=== PATIENT | male | born 1965 | race Caucasian/White ===

== ENCOUNTER 2017-01-21 19:44 | Emergency (ER) | payer SELFPAY ==
[~2017-01-21] VITALS: Ht 177.8 cm; Wt 72.7 kg
[~2017-01-21 19:44] MED LIST: ADV250INHA INH; ALBUTHFA INH; AMLO5TAB90 PO; ASPI81TA40 PO; CYCL10TA9 PO; GABA100C PO; NITR0.4T SL; NOR10 PO; TIOT18CA INH
[2017-01-21 19:51] VITALS: BP 131/84; PULSE 74; RESP 20; O2SAT 90
[2017-01-21 20:48] LABS: BASOPHILS % (AUTO) 0.7 % (0-3)
[2017-01-21 20:52] LABS: EOSINOPHILS % (AUTO) 12.5 % (0-5); Mean Corpuscular Hemoglobin 35.8 pg (27.0-35.0); Mean Corpuscular Volume 101.5 fL (81-100); NEUTROPHILS % (AUTO) 61.8 % (40-74); Platelet Count 480 bil/L (150-400)
--- NOTE | 2017-01-21 21:06 | DRSVH ---
PROCEDURE: X-RAY CHEST, TWO VIEWS ([id number]) INDICATIONS: SOB TECHNIQUE: 2 views of the chest were acquired. COMPARISON: [facility], CR, XR CHEST 2VW, 09/22/2015, 11:27. FINDINGS: Surgical changes and devices: None. Lungs and pleura: No pleural effusions or pneumothorax. There is hyperinflation of the lungs with f lattening of the hemidiaphragms compatible with COPD. Lungs are clear. Mediastinum: Mediastinal contours are normal. Heart size is normal. Bones and chest wall: No suspicious bony abnormalities. Soft tissues appear unremarkable. IMPRESSION: 1. Findings compatible with COPD without acute consolidation. Dictated by: Armani Fragoso M.D. on 01/21/2017 at 21:00 Approved by: Armani Fragoso M.D. on 01/21/2017 at 21:04
[2017-01-21 21:08] LABS: TROPONIN T < 0.010 ug/L (0.0-0.011)
--- NOTE | 2017-01-21 21:15 | ED.REPORT ---
HPI-General Illness Date of Service Jan 21, 2017 ED Provider: Dr. Weber 51 y/o male with a hx of COPD, HTN and cervical stenosis presents to the ED complaining of worsening shortness of breath, onset few weeks ago. His sx exacerbate when laying down. Associated sx include chest pain with inspiration and severe cough with clear sputum. He states coughing leaves him lightheaded. He denies fever. He has not been able to afford his Advair due to insurance issues. The pt is a current smoker. Nursing Notes Stated Complaint: SOB, CANT SLEEP Chief Complaint: Respiratory Distress Nursing Notes Reviewed: Yes Allergies: Coded Allergies: No Known Drug Allergies (Verified Allergy, Unknown, 02/10/15) Scheduled Albuterol-Expunged Drug, Do Not Renew! (Albuterol-Expunged Drug, Do Not Renew!) 90 Mcg/Puff Hfa.aer.ad 2 PUFF INH PRN For Wheezing or Shortness of Breath AmLODIPine-Expunged Drug, Do Not Renew! (AmLODIPine-Expunged Drug, Do Not Renew! ) 5 Mg Tablet 10 MG PO DAILY Aspirin-Expunged Drug, Do Not Renew! (Aspirin-Expunged Drug, Do Not Renew!) 81 Mg Tab.chew 81 MG PO DAILY Azithromycin (Zithromax) 250 Mg Tablet 250 MG PO DAILY Beclomethasone Dipropionate (Qvar) 8.7 Gm Aer.w.adap 2 PUFF INHALATION BID Flutic/Salmet-Expunged Drug, Do Not Renew! (Advair 250/50-Expunged Drug, Do Not Renew!) 250 Mcg/50 Mcg Disk 1 PUFF INH BID For Asthma/COPD Management. Gabapentin-Expunged Drug, Do Not Renew! (Neurontin-Expunged Drug, Do Not Renew! ) 100 Mg Capsule 100 MG PO HS Prednisone (PredniSONE) 20 Mg Tablet 60 MG PO DAILY Salmeterol Xinafoate (Serevent Diskus) 50 Mcg/Puff Inhaler 1,400 MCG IH BID Tiotropium Br-Expunged Drug, Do Not Renew! (Spiriva-Expunged Drug, Do Not Renew! ) 18 Mcg/Puff Pack [address] capsule into center of chamber; close mouthpiece; press and release the piercing button only once. Exhale completely then Inhale and holdbreath aslong as is comfortable; repeat once more before discarding thecapsule. Scheduled PRN APAP/HYDROCODONE-Expunged Drug, Do Not Renew! (NORCO-Expunged Drug, Do Not Renew !) 1 Tab Tablet 1 TAB PO Q4 PRN PRN For Pain Benzonatate (Tessalon Perle) 100 Mg Capsule 100 MG PO TID PRN PRN For Cough Cyclobenzaprine-Expunged Drug, Do Not Renew! (Cyclobenzaprine-Expunged Drug, Do Not Renew!) 10 Mg Tablet 10 MG PO TID PRN PRN For Spasm For muscle spasms Nitroglycerin-Expunged Drug, Do Not Renew! (Nitroglycerin SL-Expunged Drug, Do Not Renew!) 0.4 Mg Tab.subl 0.4 MG SL PRN PRN PRN For Chest Pain General Time Seen by MD: 21:14 Chief Complaint Breathing problem Hx Obtained From: Patient Arrived By: Walk-in Sudden in Onset?: No Onset Occurred: More than a week ago... Symptom Duration: Since onset Severity: Current: No pain currently Severity: Maximum: No pain Recent Healthcare: No recent doctor visit Past Medical History Past Medical History Pt stated h/o OR, but records indicate while admitted for CP w/concern and abnormal stress, enzymes and cardiac cath were negative. Cervical stenosis chronic headaches (3 prior ED visits, CT neg) Reports: COPD, Hypertension Past Surgical History Negative Cardiac Catheritization for CAD 06/2013 Smoking History Current Every Day Smoker Social History Alcohol Use: 1-3 per day Drug Use: Denies drug use Other Social History: Smokeless tobacco, Local resident Ambulatory Status Independent Review of Systems Full Review of Systems Constitutional: Denies: Fever Respiratory: Reports: Prod cough, clear, Shortness of breath Cardiovascular: Reports: Chest pain (with inspiration) Complete sys rev & neg: except as marked. Physical Exam Vital Signs Vital Signs Date Time Temp Pulse Resp B/P Pulse Ox O2 Delivery O2 Flow Rate FiO2 01/21/17 23:38 36.6 68 15 124/70 95 Room Air 01/21/17 22:05 78 16 95 Aerosol Mask 8 01/21/17 21:43 96 10 136/71 99 Simple Mask 8 01/21/17 21:41 76 16 95 Nasal Cannula 2 01/21/17 19:51 36.6 74 20 131/84 90 Room Air Initial VS: Reviewed Head / Eyes: Atraumatic, Normocephalic Neck: Supple, Non-tender, Full range of motion Cardiovascular: Regular rate & rhythm, Heart sounds normal, Intact distal pulses Abdomen / GI: Soft, Non-tender Extremities: Vascular intact, Neuro intact, No swelling, No tenderness Skin: Warm, Dry, No cyanosis Neurologic: Alert, Oriented, Nonfocal General/Constitutional: Awake, Alert, Cooperative Distress / Hydration: Positive: Dehydration mild, Distress mild Pt is thin. Neck: Atraumatic, Supple, Full range of motion, No JVD Respiratory / Chest: Atraumatic, Breath sounds = bilat, No rhonchi Wheezing / Retractions: Positive: Wheezing mild The pt is breathing at the top of his respiratory cycle. He is not empyting his lungs. Typical COPD appearance. Interpretation & Diagnostics Lab Results Interpretation Result Diagram: 01/21/17203701/21/172037 Test 01/21/17 20:38 01/21/17 20:39 White Blood Count 13.6th/mm3 (3.8-10.1) Red Blood Count 4.02mil/mm3 (4.40-5.80) Hemoglobin 14.4g/dL (13.8-17.2) Hematocrit 40.8% (41.0-50.0) Mean Corpuscular Volume 101.5fL (81-100) Mean Corpuscular Hemoglobin 35.8pg (27.0-35.0) Mean Corpuscular Hemoglobin Concent 35.3% (32.0-37.0) Red Cell Distribution Width 13.2% (12.3-15.4) Platelet Count 480bil/L (150-400) Neutrophils (%) (Auto) 61.8% (40-74) Lymphocytes (%) (Auto) 15.7% (14-46) Monocytes (%) (Auto) 9.0% (4-12) Eosinophils (%) (Auto) 12.5% (0-5) Basophils (%) (Auto) 0.7% (0-3) Sodium Level 136mEq/L (134-144) Potassium Level 3.8mEq/L (3.5-5.2) Chloride Level 98mEq/L (97-108) Carbon Dioxide Level 20mmol/L (18-29) Blood Urea Nitrogen 6mg/dL (6-24) Creatinine 0.74mg/dL (0.76-1.27) Estimat Glomerular Filtration Rate 119mL/min (>59) Glucose Level 118mg/dL (60-99) Calcium Level 9.5mg/dL (8.5-10.1) Magnesium Level 2.0mg/dL (1.6-2.6) Total Bilirubin 0.6mg/dL (0.0-1.2) Aspartate Amino Transf (AST/SGOT) 27U/L (0-50) Alanine Aminotransferase (ALT/SGPT) 21U/L (0-44) Alkaline Phosphatase 82U/L (25-150) Troponin T < 0.010ug/L (0.0-0.011) Pro-B-Type Natriuretic Peptide 106.0pg/mL (0-121) Total Protein 7.6g/dL (6.4-8.4) Albumin 4.5g/dL (3.4-5.0) Hold Boone Top Tube Received (Received) ECG Interpretation ECG Interpretation: Normal sinus rhythm. Rate 63. Time: 20:07 Interpreted by: ED physician X-Ray Chest Interpretation Chest Xray Interpretation: IMPRESSION: 1. Findings compatible with COPD without acute consolidation. Dictated by: Armani Fragoso M.D. on 01/21/2017 at 21:00 Approved by: Armani Fragoso M.D. on 01/21/2017 at 21:04 View: Portable, AP & lat Interpretation / Wet Read by: Interpret - Radiologist Re-Eval/Medical Decision Med Decision/Clinical Course 51-year-old COPD continues to smoke. He presents with a slow advancing exacerbation after running out of his Advair and his insurance declined to renew it. He is improved here after to have, IV steroids, and is discharged now with a brief azithromycin course, prednisone course for weak, salmeterol and Qvar to substitute for Advair. Smoking cessation discussed at length. Source of Hx: Old records Time of Eval: 22:09 Re-Evaluation/Progress Note: Respiratory therapist states his air movement is better after the Albuterol administration. He feels "weird" and lightheaded after the Nebulizer. Time of Eval: 22:36 Re-Evaluation/Progress Note: Rechecked pt. Discussed lab results, imaging results, diagnosis and plan to discharge. Pt understands and agrees with the plan. F/U instruction and RTER warning given. All questions addressed. Counseled Regarding: Diagnosis, Lab results, Need for follow-up, When/why to return to ED Discharge & Departure Primary Impression: COPD with exacerbation Additional Impression: Nicotine addiction Disposition: Home Discharge Condition All VS Reviewed: Yes Patient Instructions: COPD (Chronic Obstructive Pulmonary Disease) (ED), How to Stop Smoking (ED) Additional Instructions: It is critical that you stop smoking. You do not have much reserve left to continue to suffer damage. Begin as erythromycin one tab daily for four more days. Begin prednisone three tabs daily for one week. On the last day of prednisone, begin Qvar inhaler two puffs twice daily. After a week, back off to one puff twice daily. Begin Serevent inhaler one puff twice daily. (Substitutes for Advair Diskus) Tessalon Perles three times daily if needed for cough. Follow-up with your doctor in the office. Return if any immediate issues. Referrals: Michel Valentino MD (PCP) Scribe Attestation Portions of this note were transcribed by Ngozi Huertas. I,, personally performed the history, physical exam and medical decision-making;I reviewed and confirmed the accuracy of the information in the transcribed note. Signed by Cleve Salas. 01/21/17 copies to: Michel Valentino MD, Christopher W MD Jan 21, 2017 21:15 Ngozi Huertas Jan 21, 2017 21:24
[2017-01-21] MEDS ORDERED: Dexamethasone 10 mg/mL Inj IVPUSH ONE (21:30)
[2017-01-21] MEDS ORDERED: Albuterol 2.5 mg/3 mL Inhalation Solution NEB ONE (21:30)
[2017-01-21] MEDS ORDERED: Albuterol-Ipratropium 3 mL Inhalation Solution NEB ONE (21:30)
[2017-01-21 21:41] VITALS: PULSE 76; RESP 16; O2SAT 95
[2017-01-21 21:43] VITALS: BP 136/71; PULSE 96; RESP 10; O2SAT 99
[2017-01-21 22:05] VITALS: PULSE 78; RESP 16; O2SAT 95
[2017-01-21] MEDS ORDERED: SALM50DI IH (22:42)
[2017-01-21] MEDS ORDERED: BECL8.7A6 INHALATION (22:43)
[2017-01-21] MEDS ORDERED: PRE20 PO (22:44)
[2017-01-21] MEDS ORDERED: BENZ-12 PO (22:51)
[2017-01-21] MEDS ORDERED: ZIT250 PO (23:35)
[2017-01-21 23:38] VITALS: BP 124/70; PULSE 68; RESP 15; O2SAT 95
== END 2017-01-21 23:40 | disposition home or self-care (01) ==
LOC: SED 19:44
DX: J44.1 Chronic obstructive pulmonary disease with (acute) exacerbation (principal); F17.200 Nicotine dependence, unspecified, uncomplicated; I10 Essential (primary) hypertension; I25.2 Old myocardial infarction; Z79.82 Long term (current) use of aspirin
CPT/HCPCS: 36415; 71020; 80053; 83735; 83880; 84484; 85025; 93005; 94644; 96374; 99285; J1100; J7613; J7620

== ENCOUNTER 2017-03-05 22:51 | Inpatient (IN) | payer OTHER ==
[~2017-03-05] VITALS: Ht 180.3 cm; Wt 64.3 kg
[2017-03-05 22:51] VITALS: BP 156/83; PULSE 68; RESP 12; O2SAT 99
[~2017-03-05 22:51] MED LIST changes: +BECL8.7A6 INHALATION; +BENZ-12 PO; +PRE20 PO; +SALM50DI IH; +ZIT250 PO
--- NOTE | 2017-03-05 22:53 | ED.REPORT ---
HPI-General Illness Date of Service Mar 05, 2017 ED Provider: Dusty Weber MD Pt is a 51 year old male with a history of hypertension and COPD who presents to the ED via EMS with increasing SOB onset prior to arrival. He arrived with CPAP in place, and was given nebulizer treatment and 125 mg of Solumedrol by EMS. Per EMS, pt was bent over in tripod position, and failing when they arrived. Pt reports that he has been sick for a few days, but cannot afford his medications. He also states that he still smokes cigarettes every other day. Nursing Notes Stated Complaint: SHORT OF BREATH Chief Complaint: Respiratory Distress Nursing Notes Reviewed: Yes Allergies: Coded Allergies: No Known Drug Allergies (Verified Allergy, Unknown, 02/10/15) Scheduled ([Advair]) Unknown Dose INHALATION BID Amlodipine (Amlodipine) 10 Mg Tablet 10 MG PO DAILY Aspirin (Aspirin) 81 Mg Tablet 81 MG PO DAILY Atenolol (Atenolol) 25 Mg Tablet 25 MG PO BID Lisinopril (Lisinopril) 10 Mg Tablet 10 MG PO DAILY Omeprazole (Omeprazole) 20 Mg Capsule.dr 20 MG PO DAILY Ranitidine (Ranitidine) 300 Mg Capsule 300 MG PO BID Umeclidinium Orange (Incruse Ellipta) 62.5 Mcg/Actuation Blst.w.dev Unknown Dose INHALATION DAILY Scheduled PRN ([Albuterol ]) INHALATION PRN For Wheezing Cyclobenzaprine (Cyclobenzaprine) 10 Mg Tablet 10 MG PO TID PRN PRN Spasm Hydrocodone-Acetaminophen 10-325 mg (Hydrocodone-Acetaminophen 10-325 mg) 1 Each Tablet 1 TABLET PO Q6H PRN PRN For Pain General Time Seen by MD: 22:53 Chief Complaint Other (SOB) Hx Obtained From: Patient, EMS Arrived By: Ambulance Context of Onset: Ran out of medication Pertinent Negative: Pt denies other symptoms Recent Healthcare: No recent doctor visit, No recent hospitalization Past Medical History Past Medical History Pt stated h/o [place], but records indicate while admitted for CP w/concern and abnormal stress, enzymes and cardiac cath were negative. Cervical stenosis chronic headaches (3 prior ED visits, CT neg) Reports: COPD, Hypertension Past Surgical History Negative Cardiac Catheritization for CAD 06/2013 Smoking History Current Every Day Smoker Social History Alcohol Use: 1-3 per day Drug Use: Denies drug use Other Social History: Smokeless tobacco, Local resident Ambulatory Status Independent Review of Systems Full Review of Systems Constitutional: Denies: Chills, Fever Respiratory: Reports: Shortness of breath (increasing ) GI: Denies: Abdominal pain, Diarrhea, Nausea, Vomiting Musculoskeletal: Denies: Back pain Skin: Denies Rash Psychiatric: Denies: Change mental status Complete sys rev & neg: except as marked. Physical Exam Vital Signs Vital Signs Date Time Temp Pulse Resp B/P Pulse Ox O2 Delivery O2 Flow Rate FiO2 03/06/17 01:34 65 17 132/80 96 Nasal Cannula 2 03/06/17 01:29 65 17 132/80 96 Nasal Cannula 2 03/06/17 00:03 71 12 125/81 97 Nasal Cannula 2 03/05/17 23:27 69 17 132/92 100 BiPAP 6 03/05/17 23:09 71 16 98 BiPAP 30 03/05/17 23:09 17 98 30 03/05/17 22:57 70 16 149/102 100 BiPAP 7 03/05/17 22:51 36.3 68 12 156/83 99 BiPAP 8 Initial VS: Reviewed Head / Eyes: Atraumatic, Normocephalic Neck: Supple, Full range of motion Abdomen / GI: Soft, Non-tender Extremities: Vascular intact, Neuro intact, No swelling, No tenderness Skin: Warm, Dry, No cyanosis Neurologic: Alert, Oriented, Nonfocal Psychiatric: Mood/affect normal, Behavior normal, Normal thought content General/Constitutional: Awake, Alert Respiratory / Chest: Atraumatic Wheezing, worse in left than right Respiratory distress, now improving Cardiovascular: Heart rate NL Heart Rate / Rhythm: Positive: Tachycardia No peripheral edema Interpretation & Diagnostics Lab Results Interpretation Result Diagram: 03/06/17 0605 03/05/17 2301 Test 03/05/17 23:01 03/05/17 23:34 03/06/17 01:01 Sodium Level 140mEq/L (134-144) Potassium Level 3.8mEq/L (3.5-5.2) Chloride Level 102mEq/L (97-108) Carbon Dioxide Level 20mmol/L (18-29) Blood Urea Nitrogen 4mg/dL (6-24) Creatinine 0.60mg/dL (0.76-1.27) Estimat Glomerular Filtration Rate 152mL/min (>59) Glucose Level 105mg/dL (60-99) Calcium Level 9.3mg/dL (8.5-10.1) Total Bilirubin 0.5mg/dL (0.0-1.2) Aspartate Amino Transf (AST/SGOT) 20U/L (0-50) Alanine Aminotransferase (ALT/SGPT) 20U/L (0-44) Alkaline Phosphatase 76U/L (25-150) Troponin T < 0.010ug/L (0.0-0.011) Pro-B-Type Natriuretic Peptide 169.7pg/mL (0-121) Total Protein 7.4g/dL (6.4-8.4) Albumin 4.6g/dL (3.4-5.0) Hold Boone Top Tube Received (Received) Urine Color Straw (YELLOW) Urine Appearance Clear (CLEAR,HAZY) Urine pH 7.5 (5.0-8.0) Urine Specific [place] 1.004 (1.003-1.035) Urine Protein Negativemg/dL (NEG,TRACE) Urine Glucose (UA) Negativemg/dL (NEGATIVE) Urine Ketones Negativemg/dL (NEGATIVE) Urine Occult Blood Negative (NEGATIVE) Urine Nitrite Negative (NEGATIVE) Urine Bilirubin Negative (NEGATIVE) Urine Urobilinogen Normalmg/dL (NORMAL) Urine Leukocyte Esterase Negative (NEGATIVE) Urine RBC 0-2/hpf (0-2) Urine WBC 0-5/hpf (0-5) Urine Epithelial Cells None/hpf (NONE-MOD) Urine Crystals None seen (NONE SEEN) Urine Bacteria None/hpf (NONE-FEW) Urine Hyaline Casts None/lpf (NONE) Urine Granular Casts None seen (NONE SEEN) Urine Waxy Casts None seen (NONE SEEN) Urine Red Blood Cell Casts None seen (NONE SEEN) Urine White Blood Cell Casts None seen (NONE SEEN) Urine Mucus None seen (None Seen) Urine Trichomonas None seen (NONE SEEN) Urine Yeast None (NONE SEEN) Urinalysis Comment None Urine Culture Reflexed Not indicated Procalcitonin 0.02ng/mL (0.00-0.08) ECG Interpretation ECG Interpretation: Sinus rhythm, rate 70 Time: 23:15 Interpreted by: ED physician X-Ray Chest Interpretation Chest Xray Interpretation: No pneumonia appreciated. View: Portable, 1 view Interpretation / Wet Read by: Wet read ED physician Re-Eval/Medical Decision Med Decision/Clinical Course 51-year-old brought by rescue after worsening exacerbation of COPD resulted in distress approaching respiratory failure. He is much improved but certainly not normal at this point. He is initially resistant, but agrees to overnight observation and continued nebulizers. Part of his issue is economic noncompliance, as he has been prescribed Advair Diskus and Afforded. He is needs could be served by steroid inhaler and routine beta agonists. He is admitted now to the medicine service for additional steroids and nebulizers. A smoke-free milia will also be helpful. Transported in stable and improved condition. Source of Hx: Old records Time of Eval: 00:04 Re-Evaluation/Progress Note: Pt rechecked. Discussed plan for admission. Time of Eval: 00:43 Re-Evaluation/Progress Note: Per nurse, pt doesn't want to be admitted. Upon re-evaluation, pt agrees to be admitted. Pt understands and agrees with plan. All questions addressed. Consultation : Referral / Consult Name: Rony Holliday MD Consulted With: Hospitalist Call Returned at: 00:28 Early Childhood Education Coordinator: Will see patient, Agrees with plan, Accepts admit Note: Discussed plan for admission with hospitalist, Dr. Holliday. Counseled Regarding: Diagnosis, Lab results, Need for admission Discharge & Departure Shift Change Sign-Out Response to Therapy: Improved Primary Impression: COPD with exacerbation Additional Impression: Respiratory distress Disposition: ADMITTED TO HOSPITAL Discharge Condition All VS Reviewed: Yes Condition: Stable Referrals: Michel Valentino MD (PCP) Crit Care Except Billable Proc Time Spent: 30-74 minutes (30 minutes ) Scribe Attestation Portions of this note were transcribed by Marybeth Brooke. I, Dr. Weber, personally performed the history, physical exam and medical decision-making; I reviewed and confirmed the accuracy of the information in the transcribed note. copies to: Michel Valentino MD, Christopher W MD Mar 05, 2017 22:53 Marybeth Brooke Mar 06, 2017 00:42 0.02ng/mL (0.00-0.08) ECG Interpretation ECG Interpretation: Sinus rhythm, rate 70 Time: 23:15 Interpreted by: ED physician X-Ray Chest Interpretation Chest Xray Interpretation: No pneumonia appreciated. View: Portable, 1 view Interpretation / Wet Read by: Wet read ED physician Re-Eval/Medical Decision Source of Hx: Old records Time of Eval: 00:04 Re-Evaluation/Progress Note: Pt rechecked. Discussed plan for admission. Time of Eval: 00:43 Re-Evaluation/Progress Note: Per nurse, pt doesn't want to be admitted. Upon re-evaluation, pt agrees to be admitted. Pt understands and agrees with plan. All questions addressed. Consultation : Referral / Consult Name: Rony Holliday MD Consulted With: Hospitalist Call Returned at: 00:28 Early Childhood Education Coordinator: Will see patient, Agrees with plan, Accepts admit Note: Discussed plan for admission with hospitalist, Dr. Holliday. Counseled Regarding: Diagnosis, Lab results, Need for admission Discharge & Departure Disposition: ADMITTED TO HOSPITAL Discharge Condition All VS Reviewed: Yes Condition: Stable Referrals: Michel Valentino MD (PCP) Crit Care Except Billable Proc Time Spent: 30-74 minutes (30 minutes ) Scribe Attestation Portions of this note were transcribed by Marybeth Brooke. I, Dr. Weber, personally performed the history, physical exam and medical decision-making; I reviewed and confirmed the accuracy of the information in the transcribed note. copies to: Michel Valentino MD, Christopher W MD Mar 05, 2017 22:53 Marybeth Brooke Mar 06, 2017 00:42
[2017-03-05 22:57] VITALS: BP 149/102; PULSE 70; RESP 16; O2SAT 100
--- NOTE | 2017-03-05 22:59 | ABG ---
DateTimeAnalyzed 22:52:00 -_ pH ____7.402 - 7.350 7.450 pCO2 ___39.1__ -mmHg 35.0 45.0 pO2 102 -mmHg 69.0 116 HCO3- ___23.8__ -mmol/L 22.0 26.0 ABE ___-0.3__ -mmol/L -2.0 2.0 tHb ___14.2__ -g/dL 12.0 18.0 O2Hb ___95.2__ -% COHb ____2.4__ -% 0.0 1.5 MetHb ____1.0__ -% 0.4 1.5 sO2 ___98.5__ -% 25.0 FIO2 ___50.0__ -% Drawn By AF - Date/Time Notified____ 22:58:00 -_ Oxygen Device 1 ____BIPAP - Notified By AF - Notified Whom ___Dr. Weber - B 756 -mmHg tO2 ___19.1__ -Vol% OrderingPhysicianInitials CR - Jas test _Positive -
[2017-03-05] MEDS ORDERED: Albuterol 2.5 mg/3 mL Inhalation Solution NEB ONE (23:04)
[2017-03-05 23:06] LABS: BASOPHILS % (AUTO) 0.9 % (0-3); EOSINOPHILS % (AUTO) 11.2 % (0-5); MONOCYTES % (AUTO) 8.6 % (4-12); Mean Corpuscular Hemoglobin 35.8 pg (27.0-35.0); Mean Corpuscular Volume 100.2 fL (81-100); NEUTROPHILS % (AUTO) 57.4 % (40-74); Platelet Count 440 bil/L (150-400)
[2017-03-05 23:09] VITALS: PULSE 71; RESP 16; RESP 17; O2SAT 98
[2017-03-05 23:27] VITALS: BP 132/92; PULSE 69; RESP 17; O2SAT 100
[2017-03-05 23:43] LABS: APPEARANCE,URINE CLEAR (CLEAR,HAZY); COLOR,URINE STRAW (YELLOW); OCCULT BLOOD,URINE NEGATIVE (NEGATIVE); PH,URINE 7.5 (5.0-8.0); UROBILINOGEN,URINE NORMAL (NORMAL)
[2017-03-05 23:47] LABS: TROPONIN T < 0.010 ug/L (0.0-0.011)
[2017-03-06] VITALS (15 sets, daily range): BP systolic 102–135; BP diastolic 66–81; PULSE 20–79; RESP 12–20; O2SAT 92–97
[2017-03-06] MEDS ORDERED: Alum-Mag Hydrox-Simeth 30 mL Suspension PO PRN (01:00)
[2017-03-06] MEDS ORDERED: Polyethylene Glycol (PEG) 17 Gm Powder PO PRN (01:00)
[2017-03-06] MEDS ORDERED: Ondansetron 2 mg/mL 2 mL Inj IVPUSH PRN (01:00)
[2017-03-06] MEDS ORDERED: MethylprednisoLONE Sodium Succinate 62.5 mg/mL 2 mL Inj IVPUSH ONE (01:00)
--- NOTE | 2017-03-06 01:11 | PCM.HPMED ---
Subjective Date of Service Mar 06, 2017 Primary Provider: Admitting Physician: Primary Care Physician: Michel Valentino MD Attending Physician: Admit Status: From the Emergency Department, Full Admit, Remote Telemetry Chief Complaint: Shortness of breathe History of Present Illness: David Richmond is a 51 yo man with COPD, Hypertension, Tobacco abuse who presents to [facility] emergency department with complaints of increasing shortness of breathe Patient has been having breathing problems fo several weeks but worsened yesterday. He has increasing shortness of breathe with associated productive whitish cough. He denies any fever or chills. No sick contacts. He has ran out of his inhalers specifically Advair and Incrus due to cost for a month now. He continues to smoke on a daily basis History of COPD exacerbation in the past. Not currently on any oxygen at home. 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 Denies any occupational exposure Case discussed with Dr Weber, inhaler and steroids initiated with plans to admit Review of Systems: Pertinent positives as noted in HPI. All other systems were reviewed and are negative Allergies Coded Allergies: No Known Drug Allergies (Verified Allergy, Unknown, 02/10/15) Home Medications From [facility], not yet confirmed David Richmond. [id number] 1965 12/04/2016 11:15 AM 06/26 ADVAIR DISKUS 250/50 INHALANT INHALE 1 PUFF TWICE DAILY IN THE MORNING AND IN THE EVENING Aspirin Low Dose 81 mg tablet,delayed release take 1 tablet by oral route every day for heart cyclobenzaprine 10 mg tablet TAKE 1 TABLET (10MG) BY ORAL ROUTE 3 TIMES EVERY DAY NEEDED FOR MUSCLE SPASM fluticasone 50 mcg/actuation nasal spray,suspension spray 2 spray by intranasal route every day in each nostril for allergies INCRUSE ELLIPTA 62.5MCG INH INHALANT INHALE 1 PUFF BY INHALATION ROUTE EVERY DAY AT THE SAME TIME EACH DAY FOR BREATHING [place] 10 mg-325 mg tablet take 1 tablet by ORAL route every 4 hours as needed for pain NORVASC 10MG TABLETS TABLET TAKE 1 TABLET BY ORAL ROUTE EVERY DAY OMEPRAZOLE 20MG CAPS CAPSULE TAKE 1 CAPSULE BY ORAL ROUTE EVERY DAY RANITIDINE 300MG TABLET TABLET TAKE 1 TABLET BY ORAL ROUTE EVERY DAY TWICE DAILY VENTOLIN HFA INHALER MG INHALANT INHALE 2 PUFF BY INHALATION ROUTE EVERY 4 - 6 HOURS NEEDED ZESTRIL 10MG TABLETS TABLET TAKE 1 TABLET BY ORAL ROUTE EVERY DAY Atenolol 25 mg bid Lisinopril 10 mg daily PMH COPD Allergic rhinitis Anxiety with panic attacks Tobacco abuse Hypertension Chronic back pain due to Lumbar radiculopathy . Surgical History Cardiac cath Family History Father 68 history of CVA Mother 68, no health issues Social History Hx Alcohol Use: Yes Hx Substance Use: No Hx Tobacco Use: Yes (1/2 ppd) Smoking Status: Current Every Day Smoker Living Arrangement: with Family Exam Vital Signs Vital Sign - Last Date Time Temp Pulse Resp B/P Pulse Ox O2 Delivery O2 Flow Rate FiO2 03/06/17 00:03 71 12 125/81 97 Nasal Cannula 2 03/05/17 23:09 30 03/05/17 22:51 36.3 Exam General: Alert, Oriented X3, Cooperative, Talking in full sentences with intermittent coughing Eyes: PERRLA, Scleral Anicteric Mouth: Mouth Normal, Mucous Membranes Moist/[place] Neck: Supple, no Thyromegaly, trachea central. Chest & Lungs: Clear to auscultation & percussion, No adventitious breath sounds, no crackles, + expiratory wheeze Cardiovascular: Normal S1, Normal S2, No Murmurs/Rubs/Gallops, Regular Rate/ Rhythm, (No JVD, no peripheral edema) Pulses: Radial (present and equal), Dorsalis Pedi (present and equal) Abdomen: Soft, Non-tender, Non-distended, Normoactive bowel tones. Musculoskeletal: Unremarkable. Normal range of motion, no swollen or erythematous joints Extremities: No edema, no cyanosis, no clubbing. Skin: No rashes. Warm and dry, no erythematous areas Neurological: Grossly neurologically intact, Normal Speech, Sensation Intact Lymphatic: Lymph nodes Cervical and Axillary not palpable. Lab and Diagnostics Labs Laboratory Tests Test 03/05/17 23:01 03/05/17 23:34 03/06/17 01:01 White Blood Count 12.2th/mm3 (3.8-10.1) Red Blood Count 4.05mil/mm3 (4.40-5.80) Hemoglobin 14.5g/dL (13.8-17.2) Hematocrit 40.6% (41.0-50.0) Mean Corpuscular Volume 100.2fL (81-100) Mean Corpuscular Hemoglobin 35.8pg (27.0-35.0) Mean Corpuscular Hemoglobin Concent 35.7% (32.0-37.0) Red Cell Distribution Width 13.3% (12.3-15.4) Platelet Count 440bil/L (150-400) Neutrophils (%) (Auto) 57.4% (40-74) Lymphocytes (%) (Auto) 21.7% (14-46) Monocytes (%) (Auto) 8.6% (4-12) Eosinophils (%) (Auto) 11.2% (0-5) Basophils (%) (Auto) 0.9% (0-3) Sodium Level 140mEq/L (134-144) Potassium Level 3.8mEq/L (3.5-5.2) Chloride Level 102mEq/L (97-108) Carbon Dioxide Level 20mmol/L (18-29) Blood Urea Nitrogen 4mg/dL (6-24) Creatinine 0.60mg/dL (0.76-1.27) Estimat Glomerular Filtration Rate 152mL/min (>59) Glucose Level 105mg/dL (60-99) Calcium Level 9.3mg/dL (8.5-10.1) Total Bilirubin 0.5mg/dL (0.0-1.2) Aspartate Amino Transf (AST/SGOT) 20U/L (0-50) Alanine Aminotransferase (ALT/SGPT) 20U/L (0-44) Alkaline Phosphatase 76U/L (25-150) Troponin T < 0.010ug/L (0.0-0.011) Pro-B-Type Natriuretic Peptide 169.7pg/mL (0-121) Total Protein 7.4g/dL (6.4-8.4) Albumin 4.6g/dL (3.4-5.0) Hold [place] Top Tube Received (Received) Urine Color Straw (YELLOW) Urine Appearance Clear (CLEAR,HAZY) Urine pH 7.5 (5.0-8.0) Urine Specific [place] 1.004 (1.003-1.035) Urine Protein Negativemg/dL (NEG,TRACE) Urine Glucose (UA) Negativemg/dL (NEGATIVE) Urine Ketones Negativemg/dL (NEGATIVE) Urine Occult Blood Negative (NEGATIVE) Urine Nitrite Negative (NEGATIVE) Urine Bilirubin Negative (NEGATIVE) Urine Urobilinogen Normalmg/dL (NORMAL) Urine Leukocyte Esterase Negative (NEGATIVE) Urine RBC 0-2/hpf (0-2) Urine WBC 0-5/hpf (0-5) Urine Epithelial Cells None/hpf (NONE-MOD) Urine Crystals None seen (NONE SEEN) Urine Bacteria None/hpf (NONE-FEW) Urine Hyaline Casts None/lpf (NONE) Urine Granular Casts None seen (NONE SEEN) Urine Waxy Casts None seen (NONE SEEN) Urine Red Blood Cell Casts None seen (NONE SEEN) Urine White Blood Cell Casts None seen (NONE SEEN) Urine Mucus None seen (None Seen) Urine Trichomonas None seen (NONE SEEN) Urine Yeast None (NONE SEEN) Urinalysis Comment None Urine Culture Reflexed Not indicated Result Diagram: 03/05/17 2301 03/05/17 2301 Additional Diagnostics: Pulmonary function test 11/09/11 Spirometry test was done showed FEV1 of 2.02, which is 48%. Vital capacity of 2.65, which is 70%. FEV1 to FVC of 55%. After bronchodilators, 7% improvement in FEV1 up to 2.19, which is 52%. Chest x-ray reviewed showed hyperinflated lungs consistent with diagnosis of COPD. Also, he had a previous CT scan of the sinus that showed sinusitis mostly in the right maxillary sinus. Assessment & Plan David Richmond is a 51 yo man with COPD, Hypertension, Tobacco abuse who presents to [facility] emergency department with complaints of increasing shortness of breathe 1. Acute COPD exacerbation. Present on admission Trigger is likely due to ongoing smoking as well as exposure to atmospheric smoke dusts. Also the patient has ran out of his [employer] and [employer] due to cost. Differential diagnosis includes Pulmonary embolism (less likely), Congestive heart failure or pneumonia - steroid therapy continued with Prednisone 40 mg x 5 days - Chest x ray showed no infiltrates, will hold off on antibiotics while checking procalcitonin - DuoNeb scheduled for now - recommended Influenza vaccination this year - recommend a follow up with Pulmonology as outpatient and repeat a Pulmonary function test - Social work consult to help with patients prescriptions (mentioned above) 2 Hypertension, Chronic Recent addition of 2 hypertensive medications, indicated poor control - resume all antihypertensive medications - Heart healthy diet 3 Nicotine Dependence Counseled patient on importance of cessation. Discussed complications such as CAD, Stroke and Lung malignancy - nicotine patch offered upon request - Acetaminophen as needed for mild pain/fever/headache - Bowel regimen as needed - Antiemetic as needed Patient admitted under inpatient status with expected length of stay > 2 midnights for severity of present symptoms, complexities of treatment plan and risk for adverse event . Resuscitation Status: CPR: Attempt Resuscitation Rony Holliday MD Mar 06, 2017 01:11
[2017-03-06] MEDS ORDERED: HYDR-3740 PO (02:48)
[2017-03-06] MEDS ORDERED: ASPI-973 PO (02:48)
[2017-03-06] MEDS ORDERED: Advair INHALATION ×2 (02:48→15:42)
[2017-03-06] MEDS ORDERED: CYCL10TA9 PO (02:48)
[2017-03-06] MEDS ORDERED: Albuterol INHALATION ×2 (02:56→15:42)
[2017-03-06] MEDS ORDERED: UMEC62.5 INHALATION (02:57)
[2017-03-06] MEDS ORDERED: OMEP20CA11 PO (03:09)
[2017-03-06] MEDS ORDERED: RANI300C PO (03:09)
[2017-03-06] MEDS ORDERED: LISI10TA PO (03:09)
[2017-03-06] MEDS ORDERED: AMLO10TA3 PO (03:09)
[2017-03-06] MEDS ORDERED: ATEN25TA PO (03:09)
[2017-03-06] MEDS: HYDROcodone-APAP 10-325 mg PO PRN ×3 (03:14→15:38)
--- NOTE | 2017-03-06 04:37 | NUR ---
Admit: Pt admitted to [facility] room 3025. pt placed on Tele showing SR 70s. PT denies any chest pain/ discomfort. Pt placed on Continuos pulse ox to monitor Sp02. Sating beth-hihg 90s on 2L NC. Pt titrated to RA- Sats low 90s. Health history and med rec completed via pt interview. PT states his SOB has gotten worse over the past view days as he has run out of his inhalers and cannot afford them. PRN [place] given for chronic neck pain. Pt tolerated dinner well. currently sleeping comfortably in bed. care ongoing.
[2017-03-06] MEDS: Albuterol-Ipratropium 3 mL Inhalation Solution NEB SCH ×4 (05:09→15:36)
[2017-03-06 06:34] LABS: BASOPHILS % (AUTO) 0.3 % (0-3); EOSINOPHILS % (AUTO) 0.1 % (0-5); MONOCYTES % (AUTO) 0.4 % (4-12); Mean Corpuscular Hemoglobin 35.3 pg (27.0-35.0); Mean Corpuscular Volume 102.3 fL (81-100); NEUTROPHILS % (AUTO) 95.8 % (40-74); Platelet Count 372 bil/L (150-400)
[2017-03-06] MEDS ORDERED: predniSONE 20 mg Tablet PO SCH (08:30)
--- NOTE | 2017-03-06 11:07 | NUR ---
Social Work-initial assessment/multidisciplinary rounds: Data:See initial assessment. Pt is a 51 y/o male who was admitted on 03/06/17 for COPD exacerbation per H&P. Pt does not have insurance and PCP is listed as Michel Valentino MD. EMR reviewed. Pt resides at home with his SO in [place] where she remains independent with ADls. Pt drives and does not use any DME. Pt has no HH or SNF history. Pt has no director long term care care insurance or VA benefits. SW discussed DPOA/ advanced directive, pt declines any information. order received for HH and financial concerns. Pt states he used to be on Medicaid and then made too much money and got dropped. Pt states he is planning on working less and will qualify. MERLYN explained that SW could call [facility] and have them screen pt. SW also provided pt with information regarding health care exchange, [facility] for sliding scale fee, and [facility] application. SW explained that this hospital is unable to fill medications for pt. Pt states an understanding. Pt would not be eligible for HH due to not having insurance. SW provided pt with discharge planning checklist and encouraged pt to call with any questions, phone number provided on white board in the room. SW will continue to follow. Assessment:Pt who is independent at baseline. Plan:Pt to discharge home when medically stable via POV. MERLYN also provided pt with information regarding health care exchange, [facility] for sliding scale fee, and [facility] application. [facility] to screen pt for insurance. SW will continue to follow. DERICK Beth Addendum: 03/06/17 at 1121 by BERNA CYR Amended: Links added.
--- NOTE | 2017-03-06 11:24 | NUR ---
Called and left message for [facility] to follow up on this patient as he is currently self pay. 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
[2017-03-06] MEDS ORDERED: ADV100INH IH (11:56)
[2017-03-06] MEDS ORDERED: BUDE10.2 INHALATION (11:56)
[2017-03-06] MEDS ORDERED: MOME13HF IH (11:56)
[2017-03-06] MEDS ORDERED: Fluticasone-Salmererol 250-50 Inhaler INHALATION SCH (14:50)
--- NOTE | 2017-03-06 15:05 | NUR ---
Oxygen Pt weaned off oxygen at 1300. Using IS appropriately. Denies having questions. Walked the lozano with RT, maintained oxygen WNL. Will continue to monitor.
[2017-03-06] MEDS ORDERED: PRED-508 PO (15:42)
[2017-03-06] MEDS ORDERED: ALBU2.5V4 NEB (15:45)
--- NOTE | 2017-03-06 15:46 | PCM.DC.MED ---
Discharge Summary Date of Service Mar 06, 2017 Dates of Hospitalization Date of Hospital Admission Mar 06, 2017 at 01:39 Date of Discharge: Mar 06, 2017 Providers: Admitting Physician: Rony Holliday MD Primary Care Physician: Michel Valentino MD Attending Physician: Zhao Doherty MD Diagnosis at Time of Discharge Diagnosis at Time of Discharge 1. Acute COPD exacerbation. Present on admission. 2 Hypertension, Chronic 3 Nicotine Dependence Procedures Other Diagnostics Pulmonary function test 11/09/11 Spirometry test was done showed FEV1 of 2.02, which is 48%. Vital capacity of 2.65, which is 70%. FEV1 to FVC of 55%. After bronchodilators, 7% improvement in FEV1 up to 2.19, which is 52%. Chest x-ray reviewed showed hyperinflated lungs consistent with diagnosis of COPD. Also, he had a previous CT scan of the sinus that showed sinusitis mostly in the right maxillary sinus. Brief History Per HPI 03/[address] Little David Richmond is a 51 yo man with COPD, Hypertension, Tobacco abuse who presents to [facility] emergency department with complaints of increasing shortness of breathe Patient has been having breathing problems fo several weeks but worsened yesterday. He has increasing shortness of breathe with associated productive whitish cough. He denies any fever or chills. No sick contacts. He has ran out of his inhalers specifically Advair and Incrus due to cost for a month now. He continues to smoke on a daily basis History of COPD exacerbation in the past. Not currently on any oxygen at home. 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 Denies any occupational exposure Case discussed with Dr Weber, inhaler and steroids initiated with plans to admit Hospital Course David Richmond is a 51 yo man with COPD, Hypertension, Tobacco abuse who presents to [facility] emergency department with complaints of increasing shortness of breathe 1. Acute COPD exacerbation. Present on admission. Trigger likely due to ongoing smoking as well as exposure to atmospheric smoke dusts. Also the patient has ran out of his Advair and Incure due to cost. Differential diagnosis includes Pulmonary embolism (less likely), Congestive heart failure or pneumonia - steroid therapy continued with Prednisone 40 mg x 5 days total. - Chest x ray showed no infiltrates, will hold off on antibiotics while checking procalcitonin - DuoNeb scheduled for now - recommended Influenza vaccination this year - recommend a follow up with Pulmonology as outpatient and repeat a Pulmonary function test - Social work consult to help with patients prescriptions (mentioned above) 2 Hypertension, Chronic Recent addition of 2 hypertensive medications, indicated poor control - resumed all antihypertensive medications - Heart healthy diet 3 Nicotine Dependence Counseled patient on importance of cessation. Discussed complications such as CAD, Stroke and Lung malignancy - nicotine patch offered - Acetaminophen as needed for mild pain/fever/headache - Bowel regimen as needed - Antiemetic as needed Dispo- home - Steroid therapy continued with Prednisone 40 mg for 5 days ending March 11. - Restart Advair. Added Albuterol rescue inhaler. Continue Incruse Ellipta inhaler. - Continue home meds for blood pressure. - recommended Influenza vaccination this year - Follow up with your PCP in 1 week. - Recommend a referral to Pulmonology as outpatient and repeat Pulmonary function tests. - Follow up with [employer] regarding insurance issues as planned. Exam Vital Signs (Last) Date Time Temp Pulse Resp B/P Pulse Ox O2 Delivery O2 Flow Rate FiO2 03/06/17 13:39 37.0 65 18 109/66 92 Room Air 03/06/17 13:20 21 03/06/17 11:30 2.00 Test 03/05/17 23:01 03/05/17 23:34 03/06/17 01:01 03/06/17 06:05 Sodium Level 140mEq/L (134-144) Potassium Level 3.8mEq/L (3.5-5.2) Chloride Level 102mEq/L (97-108) Carbon Dioxide Level 20mmol/L (18-29) Blood Urea Nitrogen 4mg/dL (6-24) Creatinine 0.60mg/dL (0.76-1.27) Estimat Glomerular Filtration Rate 152mL/min (>59) Glucose Level 105mg/dL (60-99) Calcium Level 9.3mg/dL (8.5-10.1) Total Bilirubin 0.5mg/dL (0.0-1.2) Aspartate Amino Transf (AST/SGOT) 20U/L (0-50) Alanine Aminotransferase (ALT/SGPT) 20U/L (0-44) Alkaline Phosphatase 76U/L (25-150) Troponin T < 0.010ug/L (0.0-0.011) Pro-B-Type Natriuretic Peptide 169.7pg/mL (0-121) Total Protein 7.4g/dL (6.4-8.4) Albumin 4.6g/dL (3.4-5.0) Hold [place] Top Tube Received (Received) Urine Color Straw (YELLOW) Urine Appearance Clear (CLEAR,HAZY) Urine pH 7.5 (5.0-8.0) Urine Specific [place] 1.004 (1.003-1.035) Urine Protein Negativemg/dL (NEG,TRACE) Urine Glucose (UA) Negativemg/dL (NEGATIVE) Urine Ketones Negativemg/dL (NEGATIVE) Urine Occult Blood Negative (NEGATIVE) Urine Nitrite Negative (NEGATIVE) Urine Bilirubin Negative (NEGATIVE) Urine Urobilinogen Normalmg/dL (NORMAL) Urine Leukocyte Esterase Negative (NEGATIVE) Urine RBC 0-2/hpf (0-2) Urine WBC 0-5/hpf (0-5) Urine Epithelial Cells None/hpf (NONE-MOD) Urine Crystals None seen (NONE SEEN) Urine Bacteria None/hpf (NONE-FEW) Urine Hyaline Casts None/lpf (NONE) Urine Granular Casts None seen (NONE SEEN) Urine Waxy Casts None seen (NONE SEEN) Urine Red Blood Cell Casts None seen (NONE SEEN) Urine White Blood Cell Casts None seen (NONE SEEN) Urine Mucus None seen (None Seen) Urine Trichomonas None seen (NONE SEEN) Urine Yeast None (NONE SEEN) Urinalysis Comment None Urine Culture Reflexed Not indicated Procalcitonin 0.02ng/mL (0.00-0.08) White Blood Count 11.2th/mm3 (3.8-10.1) Red Blood Count 3.99mil/mm3 (4.40-5.80) Hemoglobin 14.1g/dL (13.8-17.2) Hematocrit 40.8% (41.0-50.0) Mean Corpuscular Volume 102.3fL (81-100) Mean Corpuscular Hemoglobin 35.3pg (27.0-35.0) Mean Corpuscular Hemoglobin Concent 34.6% (32.0-37.0) Red Cell Distribution Width 13.4% (12.3-15.4) Platelet Count 372bil/L (150-400) Neutrophils (%) (Auto) 95.8% (40-74) Lymphocytes (%) (Auto) 3.3% (14-46) Monocytes (%) (Auto) 0.4% (4-12) Eosinophils (%) (Auto) 0.1% (0-5) Basophils (%) (Auto) 0.3% (0-3) Discharge Medications Discharge Medications ([Advair]) 250 INHALER INHALATION BID (Reported) Amlodipine (Amlodipine) 10 Mg Tablet 10 MG PO DAILY (Reported) Aspirin (Aspirin) 81 Mg Tablet 81 MG PO DAILY (Reported) Atenolol (Atenolol) 25 Mg Tablet 25 MG PO BID (Reported) Budesonide/Formoterol 80-4.5 mcg Inh (Symbicort 80-4.5 mcg Inh) 120 Puff Inhaler 1 PUFF INHALATION BID Prescribed by: ZHAO DOHERTY MD Fluticasone/Salmeterol (Advair 100-50 Diskus) 60 Puffs/Inh Disk 1 PUFFS IH BID Prescribed by: ZHAO DOHERTY MD Lisinopril (Lisinopril) 10 Mg Tablet 10 MG PO DAILY (Reported) Mometasone/Formoterol (Dulera 200 Mcg/5 Mcg Inhaler) 13 Gm Hfa.aer.ad 13 GM IH BID Prescribed by: ZHAO DOHERTY MD Omeprazole (Omeprazole) 20 Mg Capsule.dr 20 MG PO DAILY (Reported) Ranitidine (Ranitidine) 300 Mg Capsule 300 MG PO BID (Reported) Umeclidinium Branch (Incruse Ellipta) 62.5 Mcg/Actuation Blst.w.dev Unknown Dose INHALATION DAILY (Reported) As needed ([Albuterol ]) INHALATION PRN For Wheezing (Reported) Cyclobenzaprine (Cyclobenzaprine) 10 Mg Tablet 10 MG PO TID PRN PRN Spasm ( Reported) Hydrocodone-Acetaminophen 10-325 mg (Hydrocodone-Acetaminophen 10-325 mg) 1 Each Tablet 1 TABLET PO Q6H PRN PRN For Pain (Reported) Additional med instructions - Steroid therapy continued with Prednisone 40 mg for 5 days ending March 11. - Restart Advair. Added Albuterol rescue inhaler. Continue Incruse Ellipta inhaler. - Continue home meds for blood pressure. Followup Plan Disposition: home Follow-up plan - Follow up with your PCP in 1 week. - Recommend Influenza vaccination this year - Recommend a referral to Pulmonology as outpatient and repeat Pulmonary function tests. - Follow up with [employer] regarding insurance issues as planned. Follow-up Provider: Michel Valentino MD Follow-up with PCP in: 1 week Time spent Greater than 30 minutes was spent in preparation of discharge with greater than 50% of that time dedicated to patient counseling and coordination of care. Zhao Doherty MD Mar 06, 2017 15:45
--- NOTE | 2017-03-06 15:49 | PCM.DIMED ---
Discharge Instructions Date of Service Mar 06, 2017 Dates of Hospitalization Mar 06, 2017 at 01:39 Discharge Diagnosis Discharge Diagnosis 1. Acute COPD exacerbation. Present on admission. 2 Hypertension, Chronic 3 Nicotine Dependence Medication Instructions Additional med instructions - Steroid therapy continued with Prednisone 40 mg for 5 days ending March 11. - Restart Advair. Added Albuterol rescue inhaler. Continue Incruse Ellipta inhaler. - Continue home meds for blood pressure. Diet Discharge Diet: Heart Healthy Patient Instructions Follow-up plan - Follow up with your PCP in 1 week. - Recommend Influenza vaccination this year - Recommend a referral to Pulmonology as outpatient and repeat Pulmonary function tests. - Follow up with [employer] regarding insurance issues as planned. Follow-up Provider: Michel Valentino MD Follow-up with PCP in: 1 week Salo Doherty MD Mar 06, 2017 15:49
--- NOTE | 2017-03-06 15:55 | NUR ---
Social Work-discharge: Data:EMR reviewed. Pt is on day 1 of hospitalization for COPD exacerbation per H&P. Pt is medically stable for discharge. Pt has been seen by RT and pt does not qualify for home o2. MERLYN spoke with [facility] worker Chelle who confirms that she did see pt today and he does qualify for Medicaid for this month. Chelle states pt nova likely be able to access his insurance in the next couple of days. SW updated pt at bedside and he is agreeable to plan. [facility] application, healthcare exchange information, and [facility] sliding scale information provided. Pt has been up independent in his room. no concerns noted around pt's capacity for self care per RN or MD. Pt confirms his SO will provide transport home today. All updated and agreeable to plan. Assessment:pt who is independent at baseline. Plan:Pt to discharge home today via POV. Pt to have Medicaid insurance in the next couple of days per [facility]. [facility] application, healthcare exchange information, and [employer] sliding scale information provided to pt. All updated and agreeable to plan. DERICK Beth
[2017-03-06] MEDS ORDERED: Albuterol 2.5 mg/3 mL Inhalation Solution NEB PRN (16:00)
--- NOTE | 2017-03-06 16:29 | NUR ---
Discharge Pt d/cd home with at 1620 via wc by an aide. VSS. Pt medicated for pain prior to leaving. IV d/cd. All personal belongings left with pt. Discharge teaching provided, emphasis made on pt f/u with PCP and taking medications as prescribed.
--- NOTE | 2017-03-06 20:07 | DRSVH ---
PROCEDURE: X-RAY CHEST ONE VIEW, PORTABLE ([id number]) INDICATIONS: SHORT OF BREATH TECHNIQUE: One view of the chest was acquired. COMPARISON: [facility], CR, XR CHEST 2VW, 01/21/2017, 20:15. [facility], CR, CHEST 1VW (PORTABLE), 01/07/2014, 1:40. FINDINGS: Surgical changes and devices: None. Lungs and pleura: No pleural effusions or pneumothorax. Lungs are clear. Mediastinum: Mediastinal contours appear normal. Heart size is normal. Bones and chest wall: No suspicious bony lesions. Overlying soft tissues appear unremarkable. IMPRESSION: No acute cardiopulmonary disease. Dictated by: Johnson SINGH Interpreted: Karla Sanchez MD on 03/06/2017 at 9:55 Approved by: Karla Sanchez M.D. on 03/06/2017 at 20:05
== END 2017-03-06 16:25 | disposition home or self-care (01) | DRG 140 ==
LOC: SED 22:51 → MPC 03-06 01:39
PROVIDERS: ADMIT Hospitalist; ATTEND Hospitalist
PROC: 4A033R1 Measurement of Arterial Saturation, Peripheral, Percutaneous Approach (ICD-10-PCS; principal; 2017-03-05)
DX: J44.1 Chronic obstructive pulmonary disease with (acute) exacerbation (principal); I10 Essential (primary) hypertension; F17.210 Nicotine dependence, cigarettes, uncomplicated; Z91.120 Patient's intentional underdosing of medication regimen due to financial hardship